=== PATIENT | male | born 1940 | race African-American/Black ===

== ENCOUNTER 2022-09-24 07:39 | Day surgery (SDC) | payer OTHER ==
[2022-09-21 14:52] VITALS: BMI 24.9
[2022-09-24] MEDS ORDERED: LIDOCAINE HCL/PF 2% SDV 5ML VIAL ONE (07:47)
[2022-09-24] MEDS ORDERED: PROPOFOL 120 ML ONE (07:47)
[2022-09-24 09:58] VITALS: PULSE 54; RESP 16; TEMP 97.6
[2022-09-24 10:25] VITALS: BP 114/56
== END 2022-09-24 10:20 | disposition home or self-care (01) ==
LOC: FASU-ENDO 07:39
PROVIDERS: ATTEND Internal Medicine Gastroenterology
PROC: 0DBH8ZX Excision of Cecum, Via Natural or Artificial Opening Endoscopic, Diagnostic (ICD-10-PCS; principal; 2022-09-24 09:10)
DX: Z12.11 Encounter for screening for malignant neoplasm of colon (principal); D12.0 Benign neoplasm of cecum; K64.2 Third degree hemorrhoids; K57.30 Diverticulosis of large intestine without perforation or abscess without bleeding
CPT/HCPCS: 88305-TC